=== PATIENT | female | born 1960 | race Caucasian/White ===

== ENCOUNTER 2023-11-21 06:25 | Day surgery (SDC) | payer BC, OTHER ==
[2023-11-21] MEDS ORDERED: fentaNYL 50 MCG/ML SDV ONE (06:42)
[2023-11-21] MEDS ORDERED: Propofol 200 MG/20 ML SDV ONE (06:42)
[2023-11-21] MEDS ORDERED: Midazolam 1 MG/ML 2 ML SDV ONE (06:42)
[2023-11-21] MEDS: Sodium Chloride 0.9% 1,000 ML IV SCH (06:43)
== END 2023-11-21 09:22 | disposition home or self-care (01) ==
LOC: JP.SDS 06:25
PROVIDERS: ATTEND Surgery
DX: Z12.11 Encounter for screening for malignant neoplasm of colon (principal); D12.2 Benign neoplasm of ascending colon; D12.3 Benign neoplasm of transverse colon; E11.9 Type 2 diabetes mellitus without complications; Z87.891 Personal history of nicotine dependence
CPT/HCPCS: 00811; 45385; 88305; J2250; J2704; J3010; J7030

== ENCOUNTER 2024-04-03 12:25 | Emergency (ER) | payer BC | END 2024-04-03 14:48 | disposition home or self-care (01) | LOC: JP.ED 12:25 | DX: B02.9 Zoster without complications (principal); Z88.0 Allergy status to penicillin; Z88.1 Allergy status to other antibiotic agents; Z79.890 Hormone replacement therapy; Z90.710 Acquired absence of both cervix and uterus | CPT/HCPCS: 99283 ==